=== PATIENT | male | born 1950 | race Caucasian/White ===

== ENCOUNTER 2018-07-14 11:35 | Observation (INO) | payer OTHER ==
[2018-07-14 12:02] LABS: PLATELET COUNT 235 10^3/uL (150-400)
--- NOTE | 2018-07-14 12:16 | CPEKG ---
Test Reason : OPEN Blood Pressure : / mmHG Vent. Rate : 068 BPM Atrial Rate : 069 BPM P-R Int : 174 ms QRS Dur : 105 ms QT Int : 397 ms P-R-T Axes : 073 076 058 degrees QTc Int : 423 ms Sinus rhythm Confirmed by Geronimo Diaz ([id number]) on 07/14/2018 12:15:39 PM Referred By: Confirmed By:Geronimo Diaz
--- NOTE | 2018-07-14 12:20 | EDPHY ---
H & P Stated Complaint: chest pain after a run today. relief with 2 SL NTG, fentanyl 100mcg per ems Time Seen by Provider: 07/14/18 12:15 HPI/ROS: CHIEF COMPLAINT: Chest pain HISTORY OF PRESENT ILLNESS: Patient is a 67-year-old man who comes to the emergency department complaining of chest pain. He has a history of single stent to his LAD 5 years ago. He was told at the time that he has a remaining 40% lesion in a different artery but he does not remember which 1. Today he went for a jog and quit early because it was cold outside. About 45 min later he developed chest pain while eating breakfast. He called EMS and his symptoms resolved with nitroglycerin. No EKG changes. His symptoms returned and he was given more nitroglycerin and this again helped with the pain. He is now asymptomatic. He states that he has had pleurisy multiple times and states that it feels similar. No recent fevers or illness. No nausea vomiting or diarrhea. Severity: Moderate Modifying factors: None REVIEW OF SYSTEMS: Constitutional: denies: chills, fever, recent illness, recent injury EENTM: denies: blurred vision, double vision, nose congestion Respiratory: denies: cough, shortness of breath Cardiac: See HPI Gastrointestinal/Abdominal: denies: abdominal pain, diarrhea, nausea, vomiting, blood streaked stools Genitourinary: denies: dysuria, frequency, hematuria, pain Musculoskeletal: denies: joint pain, muscle pain Skin: denies: lesions, rash, jaundice, bruising Neurological: denies: headache, numbness, paresthesia, tingling, dizziness, weakness Hematologic/Lymphatic: denies: blood clots, easy bleeding, easy bruising Immunologic/allergic: denies: HIV/AIDS, transplant 10 systems reviewed and negative except as noted EXAM: GENERAL: Well-appearing, well-nourished and in no acute distress. HEAD: Atraumatic, normocephalic. EYES: Pupils equal round and reactive to light, extraocular movements intact, sclera anicteric, conjunctiva are normal. ENT: TMs normal, nares patent, oropharynx clear without exudates. Moist mucous membranes. NECK: Normal range of motion, supple without lymphadenopathy or JVD. LUNGS: Breath sounds clear to auscultation bilaterally and equal. No wheezes rales or rhonchi. HEART: Regular rate and rhythm without murmurs, rubs or gallops. ABDOMEN: Soft, nontender, normoactive bowel sounds. No guarding, no rebound. No masses appreciated. BACK: No CVA tenderness, no spinal tenderness, step-offs or deformities EXTREMITIES: Normal range of motion, no pitting or edema. No clubbing or cyanosis. NEUROLOGICAL: Cranial nerves II through XII grossly intact. Normal speech, normal gait. 5/5 strength, normal movement in all extremities, normal sensation , normal reflexes PSYCH: Normal mood, normal affect. SKIN: Warm, dry, normal turgor, no visible rashes or lesions. Source: Patient, Family, EMS Exam Limitations: No limitations - Personal History Current Tetanus Diphtheria and Acellular Pertussis (TDAP): Yes - Medical/Surgical History Hx Asthma: No Hx Chronic Respiratory Disease: No Hx Diabetes: No Hx Cardiac Disease: Yes Hx Renal Disease: No Hx Cirrhosis: No Hx Alcoholism: No Hx HIV/AIDS: No Hx Splenectomy or Spleen Trauma: No Other PMH: CAD, stent in LAD, costocondritis, htn, high cholesterol, hypothyriod , shingles 2016, ADHD - Social History Smoking Status: Never smoked Alcohol Use: Sober Drug Use: None Constitutional: Initial Vital Signs Temperature (C) 36.7 C 07/14/18 11:47 Heart Rate 80 07/14/18 11:47 Respiratory Rate 16 07/14/18 11:47 Blood Pressure 122/77 H 07/14/18 11:47 O2 Sat (%) 92 07/14/18 11:47 O2 Delivery Mode Room Air Allergies/Adverse Reactions: No Known Allergies Allergy (Unverified 07/14/18 11:45) Home Medications: Medication Instructions Recorded Adderall 10 MG (*) 07/14/18 Levothyroxine 07/14/18 Lisinopril 07/14/18 Pravastatin Sodium 07/14/18 Medical Decision Making - Diagnostics EKG Interpretation: An EKG obtained and was read and documented in trace view. Please see trace view for full reading and report. Sinus rhythm, no acute ischemic changes Imaging Results: Imaging Impressions Chest X-Ray 07/14/18 11:54 Impression: Clear lungs. No acute process. Imaging: Discussed imaging studies w/ healthcare interpreter Radiologist ED Course/Re-evaluation: Partial list of the Differential diagnosis considered include but were not limited to; acute coronary disease, pleurisy, PE and although unlikely based on the history and physical exam, I also considered pneumothorax, pneumonia. Differential Diagnosis: Partial list of the Differential diagnosis considered include but were not limited to; acute coronary disease, pleurisy, esophageal spasm, GERD and although unlikely based on the history and physical exam, I also considered PE, pneumonia. Critical Care Time: Critical care time spent by me, Dr. Diaz exclusive with this patient was 35 minutes, exclusive of the PA time exclusive of procedures. The organ system that was at risk was cardiovascular and I gave diagnostics, consultation and admission to prevent worsening of the patient's condition - Data Points Laboratory Results: Laboratory Results 07/14/18 11:30 07/14/18 11:30 07/14/18 07/14/18 07/14/18 11:44 11:30 11:30 WBC 6.53 10^3/uL 10^3/uL (3.80-9.50) RBC 5.05 10^6/uL 10^6/uL (4.40-6.38) Hgb 15.7 g/dL g/dL (13.7-17.5) Hct 46.4 % % (40.0-51.0) MCV 91.9 fL fL (81.5-99.8) MCH 31.1 pg pg (27.9-34.1) MCHC 33.8 g/dL g/dL (32.4-36.7) RDW 13.0 % % (11.5-15.2) Plt Count 235 10^3/uL 10^3/uL (150-400) MPV 9.5 fL fL (8.7-11.7) Neut % (Auto) 52.4 % % (39.3-74.2) Lymph % (Auto) 37.4 % % (15.0-45.0) [place] % (Auto) 7.0 % % (4.5-13.0) Eos % (Auto) 2.1 % % (0.6-7.6) Baso % (Auto) 0.8 % % (0.3-1.7) Nucleat RBC Rel Count 0.0 % % (0.0-0.2) Absolute Neuts (auto) 3.42 10^3/uL 10^3/uL (1.70-6.50) Absolute Lymphs (auto) 2.44 10^3/uL 10^3/uL (1.00-3.00) Absolute Monos (auto) 0.46 10^3/uL 10^3/uL (0.30-0.80) Absolute Eos (auto) 0.14 10^3/uL 10^3/uL (0.03-0.40) Absolute Basos (auto) 0.05 10^3/uL 10^3/uL (0.02-0.10) Absolute Nucleated RBC 0.00 10^3/uL 10^3/uL (0-0.01) Immature Gran % 0.3 % % (0.0-1.1) Immature Gran # 0.02 10^3/uL 10^3/uL (0.00-0.10) Sodium 141 mEq/L mEq/L (135-145) Potassium 4.1 mEq/L mEq/L (3.3-5.0) Chloride 103 mEq/L mEq/L (97-110) Carbon Dioxide 25 mEq/l mEq/l (22-31) Anion Gap 13 mEq/L mEq/L (6-14) BUN 20 mg/dL mg/dL (7-23) Creatinine 1.0 mg/dL mg/dL (0.7-1.3) Estimated GFR > 60 Glucose 85 mg/dL mg/dL (70-100) Calcium 9.7 mg/dL mg/dL (8.5-10.4) POC Troponin I 0.00 ng/mL ng/mL (0.00-0.08) Point of Care Test Results: Chemistry 07/14/18 11:44 POC Troponin I 0.00 ng/mL ng/mL (0.00-0.08) Departure - Departure Disposition: [facility] Inpatient Acute Clinical Impression: Chest pain Qualifiers: Chest pain type: unspecified Qualified Code(s): R07.9 - Chest pain, unspecified Condition: Fair
--- NOTE | 2018-07-14 15:48 | PDGENHP ---
History and Physical - Chief Complaint Chest pain - History of Present Illness 67 y/o male with history of LAD stent placement in 2012 with 40% residual lesion , CAD, hypertension, high cholesterol and costochondritis presents with mid- sternal chest pain. Onset was this morning as he was eating breakfast. Prior, he was outside exercising (running). He reports a sore throat and mid-sternal chest pain that he initially thought was costochondritis but the pain worsened. He did not have a ride to the emergency room and called 911 for ambulance transport. He took 324 mg of ASA at home, was given nitroglycerin while in the ambulance and reports pain subsided. It came back once more, he received nitroglycerin again and 100 mcg of Fentanyl. At the maximum point of pain, he rated it 6-7/10. At present, he is ambulating in his room with family and reports the discomfort is barely there but if he presses on the area, it aggravates it. Denies cough, N/V, fevers/chills, vision changes, no pain radiating to arm or up to jaw and neck. Past Medical/Surgical History 1. LAD Stent Placement 2012 with 40% residual lesion 2. CAD 3. Costochondritis 4. Hypertension 5. High Cholesterol 6. Hypothyroidism 7. Shingles in 2016 8. ADHD History Information - Allergies/Home Medication List Allergies/Adverse Reactions: No Known Allergies Allergy (Unverified 07/14/18 11:45) Home Medications: Amphet Asp and D/Amphet [Adderall 10 MG (*)] 10 mg PO BID@10,14 PRN 07/14/18 [ Last Taken 07/13/18] Carboxymethylcellulose 1% [Refresh Celluvisc (*)] 1 drop EACHEYE BID PRN [Last Taken 07/13/18] Cholecalciferol Vit D3 [Vitamin D3 (*)] 1,000 units PO DAILY 07/14/18 [Last Taken 07/14/18 09:00] Herbals/Supplements -Info Only 1 ea PO DAILY 07/14/18 [Last Taken 07/14/18] Levothyroxine [Synthroid 75 mcg (*)] 75 mcg PO DAILY06 07/14/18 [Last Taken 03/24 06:30] Lisinopril [Zestril 10 mg (*)] 10 mg PO DAILY 07/14/18 [Last Taken 07/14/18 06: 30] Pravastatin Sodium 20 mg PO HS 07/14/18 [Last Taken 07/13/18] I have personally reviewed and updated: family history, medical history, social history, surgical history Past Medical History: See HPI List - Surgical History Additional surgical history: See HPI list - Family History Positive for: mother with history of CAD younger than 65, myocardial infarction Additional family history: Mother in her 50s. Father 75 y/o due to a valve disorder - Social History Smoking Status: Never smoked Alcohol Use: Sober Drug Use: None Additional social history: Lives at home with Review of Systems Review of Systems: ROS: 10pt was reviewed & negative except for what was stated in HPI & below Constitutional: Reports: no symptoms EENMT: Reports: sore throat Cardiac: Reports: chest pain Respiratory: Reports: no symptoms Gastrointestinal: Reports: no symptoms Genitourinary: Reports: no symptoms Muscolosketal: Reports: no symptoms Skin: Reports: no symptoms Neurological: Reports: no symptoms Hematologic/Lymphatic: Reports: no symptoms Immunologic/Allergy: Reports: no symptoms Physical Exam Physical Exam: Lab data and imaging reviewed EKG: SR D-Dimer: Pending First troponin: 0.00 Temp Pulse Resp BP Pulse Ox 36.7 C 77 18 127/79 H 92 07/14/18 14:23 07/14/18 14:23 07/14/18 14:23 07/14/18 14:23 07/14/18 14:23 Constitutional: no apparent distress, appears nourished, not in pain Eyes: PERRL, anicteric sclera, EOMI Ears, Nose, Mouth, Throat: moist mucous membranes, hearing normal, ears appear normal, no oral mucosal ulcers, other (No pharygneal erythema) Cardiovascular: regular rate and rhythym, no murmur, rub, or gallop, other ( Palpating area aggravates pain), No edema Peripheral Pulses: 2+: dorsalis-pedis (R) (Radial 2+), dorsalis-pedis (L) ( Radial 2+) Respiratory: no respiratory distress, no rales or rhonchi, clear to auscultation Gastrointestinal: normoactive bowel sounds, soft, non-tender abdomen, no palpable masses Genitourinary: no bladder fullness, no bladder tenderness Skin: warm, normal color, no rashes or abrasions, no fluctuance, no induration, No mottled Musculoskeletal: full muscle strength, no muscle tenderness, normal joint ROM, no joint effusions Neurologic: AAOx3, sensation intact bilaterally, CN II-XII Intact Psychiatric: interacting appropriately, not anxious, not encephalopathic, thought process linear Lymph, Heme, Immunologic: no cervical LAD, no supraclavicular LAD Lab Data & Imaging Review 07/14/18 11:30 07/14/18 11:30 WBC 6.53 10^3/uL (3.80-9.50) 07/14/18 11:30 RBC 5.05 10^6/uL (4.40-6.38) 07/14/18 11:30 Hgb 15.7 g/dL (13.7-17.5) 07/14/18 11:30 Hct 46.4 % (40.0-51.0) 07/14/18 11:30 MCV 91.9 fL (81.5-99.8) 07/14/18 11:30 MCH 31.1 pg (27.9-34.1) 07/14/18 11:30 MCHC 33.8 g/dL (32.4-36.7) 07/14/18 11:30 RDW 13.0 % (11.5-15.2) 07/14/18 11:30 Plt Count 235 10^3/uL (150-400) 07/14/18 11:30 MPV 9.5 fL (8.7-11.7) 07/14/18 11:30 Neut % (Auto) 52.4 % (39.3-74.2) 07/14/18 11:30 Lymph % (Auto) 37.4 % (15.0-45.0) 07/14/18 11:30 [place] % (Auto) 7.0 % (4.5-13.0) 07/14/18 11:30 Eos % (Auto) 2.1 % (0.6-7.6) 07/14/18 11:30 Baso % (Auto) 0.8 % (0.3-1.7) 07/14/18 11:30 Nucleat RBC Rel Count 0.0 % (0.0-0.2) 07/14/18 11:30 Absolute Neuts (auto) 3.42 10^3/uL (1.70-6.50) 07/14/18 11:30 Absolute Lymphs (auto) 2.44 10^3/uL (1.00-3.00) 07/14/18 11:30 Absolute Monos (auto) 0.46 10^3/uL (0.30-0.80) 07/14/18 11:30 Absolute Eos (auto) 0.14 10^3/uL (0.03-0.40) 07/14/18 11:30 Absolute Basos (auto) 0.05 10^3/uL (0.02-0.10) 07/14/18 11:30 Absolute Nucleated RBC 0.00 10^3/uL (0-0.01) 07/14/18 11:30 Immature Gran % 0.3 % (0.0-1.1) 07/14/18 11:30 Immature Gran # 0.02 10^3/uL (0.00-0.10) 07/14/18 11:30 Sodium 141 mEq/L (135-145) 07/14/18 11:30 Potassium 4.1 mEq/L (3.3-5.0) 07/14/18 11:30 Chloride 103 mEq/L (97-110) 07/14/18 11:30 Carbon Dioxide 25 mEq/l (22-31) 07/14/18 11:30 Anion Gap 13 mEq/L (6-14) 07/14/18 11:30 BUN 20 mg/dL (7-23) 07/14/18 11:30 Creatinine 1.0 mg/dL (0.7-1.3) 07/14/18 11:30 Estimated GFR > 60 07/14/18 11:30 Glucose 85 mg/dL (70-100) 07/14/18 11:30 Calcium 9.7 mg/dL (8.5-10.4) 07/14/18 11:30 POC Troponin I 0.00 ng/mL (0.00-0.08) 07/14/18 11:44 Assessment & Plan Assessment: Chest pain (Acute) Plan: A: 67 y/o male with history of LAD stent placement in 2012 with 40% residual lesion, CAD, hypertension, high cholesterol and costochondritis presents with mid-sternal chest pain that was relieved with 2x nitroglycerin and 100 mcg of Fentanyl. Heart score is 5 (moderately suspicious, >65 y/o, history of atherosclerotic disease), 16.6% risk of a major cardiac event at 6 weeks based on his score. Differential diagnoses are ACS, exacerbated costochondritis, pleurisy. 1. Chest pain -Cardiology consulted and aware. Jones Shah NP reports pt had an abnormal echo 2 years ago. Most likely cath tomorrow. -Echo limited -Cycle trops; if second trop is negative, may transition to regular diet. If cath tomorrow, NPO at midnight tonight. -Cycle EKGs -Tele 2. CAD: monitor. Continue home medications. 3. Hypertension: stable. Continue to monitor. Continue home medications. 4. Hypothyroidism: Continue home medications. Diet: NPO VTE ppx: SCDs Code: Full Dispo: Admit to obs
[2018-07-14] MEDS ORDERED: NITROGLYCERIN 0.4 MG BTL SL PRN (16:07)
[2018-07-14] MEDS ORDERED: TEMAZEPAM 15 MG CAP PO PRN (16:07)
[2018-07-14] MEDS ORDERED: ACETAMINOPHEN 325 MG TAB PO PRN (16:07)
[2018-07-14] MEDS ORDERED: CARBOXYMETHYLCELLULOSE 1% 0.4 ML DROPERETTE EACHEYE PRN (16:10)
--- NOTE | 2018-07-14 17:00 | HOSPPROG ---
Hospitalist Progress Note Assessment/Plan: Patient seen and examined. Agree with plan as outlined by Zaira Zarate NP Patient presented with CP, previous stent with 40% residual stenosis on last cath. Heart score is 5. Patient is high risk. Cardiology consulted and they plan on cath in am. Objective: Vital Signs Temp Pulse Resp BP Pulse Ox 36.7 C 77 18 127/79 H 92 07/14/18 14:23 07/14/18 14:23 07/14/18 14:23 07/14/18 14:23 07/14/18 14:23 EKG viewed by me, my personal interpretation is - NSR CXR - negative Laboratory Tests 07/14/18 07/14/18 15:30 15:30 D-Dimer < 0.27 Troponin I < 0.012 - Physical Exam Constitutional: no apparent distress, appears nourished, not in pain Cardiovascular: regular rate and rhythym, no murmur, rub, or gallop Respiratory: no respiratory distress, no rales or rhonchi, clear to auscultation Gastrointestinal: normoactive bowel sounds, soft, non-tender abdomen, no palpable masses Skin: no rashes or abrasions, no fluctuance, no induration Neurologic: AAOx3, sensation intact bilaterally Psychiatric: interacting appropriately, not anxious, not encephalopathic, thought process linear ICD10 Worksheet Patient Problems: Problems Problem Status Onset Chest pain Acute
--- NOTE | 2018-07-14 17:20 | GCON ---
CARDIOLOGY CONSULTATION. INDICATION FOR CARDIOLOGY CONSULTATION: Known history of CAD, chest pain. REQUESTING PROVIDER: Jody Zarate NP, Hospitalist Service HISTORY OF PRESENT ILLNESS: This is a patient who is known to our practice. He has recently established care with us. He has significant past history that includes CAD with previous SONIA implantation in 2012 in [place], at that time , he was also noted to have a 40% right coronary artery stenosis. He also has history of hypertension, hypercholesteremia, and costochondritis. He reports today that he had been running outside, with no symptoms. He came back in, was sitting at his computer, and felt midsternal chest pressure. He felt initially that potentially this was costochondritis, but it became worse, reporting up to an 8/. He reports potentially mild SOB, but no nausea or diaphoresis. This had concerned him enough, that he called 911, and was transported to [facility]. He reports at home, he was directed by the blankbook stitching machine operator, to take 324 mg of aspirin. Upon EMS arrival, he was also given 2 sublingual nitroglycerin, which did significantly help reduce the pain, but not totally relieved, and then was given 100 mcg of fentanyl, which reported he was pain free upon his arrival to the emergency department. He denies any shortness of breath, orthopnea, PND, edema, palpitations, lightheadedness, near-syncope, or syncopal events. Reports no symptoms suggestive of TIA or CVA. Reports prior to this event he had been in his normal state of health. He is known to have an abnormal exercise echocardiogram that was done in February of 2016, which was done at [facility] , which exercise treadmill testing did note 1-[address] depression in his inferior lateral leads, but stress echo noted no wall motion abnormalities. He informs me Dr. Back, his previous scow hand, had discussed with him about potentially repeating cardiac catheterization at that time , versus medical treatment in which he chose. PAST MEDICAL HISTORY: 1. CAD with previous stent implantation of the LAD and known 40% stenosis in his RCA. 2. Costochondritis. 3. Hypertension. 4. Hypercholesterolemia. 5. Hypothyroidism. 6. Shingles in 2016. 7. Attention deficit hyperactivity disorder. PAST SURGICAL HISTORY: Includes coronary catheterization as mentioned above. FAMILY HISTORY: Patient reports positive family history of coronary artery disease. Reporting mother with history of CAD and younger brother at age 65 with myocardial infarction. Patient also states father had valvular heart disease. Dying at age 75. SOCIAL HISTORY: He is retired, reports he is a previous smoker in college, but has not used tobacco in multiple years. Alcohol a former drinker, but reports no alcohol usage currently. He is . He lives here with his adult daughter and her family. Denies any illicit drug use. ALLERGIES: He has no known drug allergies. HOME MEDICATIONS: Include Refresh 1 drop to each eye twice daily p.r.n., herbs and supplements p.o. daily, vitamin D3 1000 units p.o. daily. Adderall 10 mg p.o. twice daily p.r.n. Synthroid 75 mcg p.o. daily. Pravastatin 20 mg p.o. h.s., lisinopril 10 mg p.o. daily. REVIEW OF SYSTEMS: A 10-point review of systems done on this patient, all negative except as mentioned above. PHYSICAL EXAMINATION: GENERAL APPEARANCE: Thin, well-groomed male. He is alert and oriented to person, place, time, and situation. Appears to be under no acute distress at this time. VITAL SIGNS: Current vital signs are a blood pressure of 127/79, heart rate 77, sinus rhythm on the monitor. Respirations 18, saturating 92% on room air. Temperature 36.7 degrees Celsius. HEENT: Head is normocephalic. Lips and tongue are pink and moist with no signs of cyanosis. Conjunctivae pink. NECK: Trachea is midline, +2 carotid pulses bilateral. No auscultated bruits, no jugular vein distention. RESPIRATORY: Lungs are clear to auscultation, no rhonchi, rales or wheezes. No accessory muscle use. No intercostal muscle retraction noted. CARDIAC: Regular rate, regular rhythm, S1, S2, no S3, S4, gallops rubs or murmurs noted. ABDOMEN: Soft, nontender, bowel sounds x4 quadrants, no organomegaly, no palpable masses. SKIN: [place], warm, dry, no cyanosis, no clubbing, no peripheral edema. VASCULAR: +2 carotids bilateral, +2 radials bilateral, +1 dorsal pedal and posterior tibial pulses bilateral. LABORATORY STUDIES: Laboratory studies drawn today show WBC of 6.53, hemoglobin 15.7, hematocrit of 46.4, platelet count of 235. D-dimer less than 0.27. Sodium 141, potassium 4.1, chloride 103, CO2 25, BUN 20, creatinine 1.0, glucose 85, calcium 9.7, troponin was noted initial of 0.00, repeated later this afternoon was less than 0.012. D-dimer was less than 0.27. STUDIES: Electrocardiogram upon arrival to the emergency department which showed sinus rhythm, normal axis, no significant ST or T-wave abnormalities. Chest x-ray showing clear lungs. No acute process. Preliminary echocardiogram done showing normal LV systolic function with no wall motion abnormalities. ASSESSMENT AND PLAN: 1. Chest pressure: Patient reporting episode of chest pressure this afternoon after getting home from exertional run. Reporting pain was intense up to an 8/ 10. Reporting this was similar pain to that he had prior to his previous stent. Symptoms were relieved with sublingual nitroglycerin and fentanyl. The patient is noted to have an abnormal exercise treadmill test in 2016 in which he had been medically treated for. He is also known to have CAD with previous stenting of the LAD and known 40% stenosis in his RCA that was done in [place] in 2012. Echocardiogram today showing no wall motion abnormalities, negative troponins x2. At this time, after discussing with Dr. Peres, it is felt best that the patient be further evaluated for cardiac ischemia. Due to history of abnormal stress testing, we have chosen to proceed on with coronary catheterization for further evaluation. The risks and benefits of this procedure were explained to the patient and his , they verbalize understanding. Patient will be made n.p.o. after midnight. He has already taken aspirin therapy. Currently he is pain-free, we will hold off on starting beta brianna at this time since negative troponins. Will not start him on anticoagulation therapy due to negative troponin. If his symptoms do worsen, or if he has any significant EKG changes, his catheterization can always be moved up to a more urgent status. 3. Hypertension: Patient with noted history of hypertension, blood pressure appears to be well managed, he has been resumed on home dosage of lisinopril. 4. Hyperlipidemia: Patient is currently on statin therapy, his medication has been reordered in the hospital. We will order a fasting lipid panel to be done tomorrow to evaluate therapy. 5. Hypothyroidism: The patient has been resumed on home dose of Synthroid. 6. Attention deficit hyperactivity disorder: The patient is on Adderall. With him having chest pain, we will hold his Adderall at this time, until cardiac catheterization has been done for further evaluation. Plan has been discussed with the patient, his , and hospitalist services. Thank you for this consultation. Further recommendations will come post cardiac catheterization scheduled for tomorrow morning with Dr. Peres. /[id number] [id number]
--- NOTE | 2018-07-14 17:43 | ECHO ---
[email or web address] [address] Main: [phone] Fax: Transthoracic Echocardiogram Name: ELYSIA MORGAN MR#: [id number] Study Date: 07/14/2018 Study Time: 02:59 PM Date of : 1950 Age: 67 year(s) Height: 182.9 cm (72 in.) Weight: 81.19 kg (179 lb.) BSA: 2.03 m2 Gender: Male Examination: Echo Indication: Chest pain/hx stent (LAD) Image Quality: Good Contrast: Requested by: Jones Shah BP: 110 mmHg/75 mmHg Heart Rate: Rhythm: Indication: Chest pain/hx stent (LAD) Procedure Staff Highway Maintainer: Jessie Pinto RDCS Reading Physician: Edi Yu MD Requesting Provider: Conclusions: Normal size left ventricle. No LV hypertrophy. Normal global systolic LV function. EF is 64 %. No regional wall motion abnormality. Normal diastolic LV function. The aortic valve is tri-leaflet. There is no aortic valve regurgitation. Mild calcification of the NCC of the aortic valve.. Trivial tricuspid valve regurgitation. Mildly dilated ascending aorta measuring 4.0 cm. No pericardial effusion. Measurements: Chambers Valvular Assessment AV/MV Valvular Assessment TV/PV Normal Normal Normal Name Value Range Name Value Range Name Value Range Ao Chanelle (MM): 3.9 cm (2.2 cm-3.7 AV Vmax: 1.24 m/s (1 m/s-1.7 cm) m/s) IVSd (2D): 0.6 cm (0.6 cm-1.1 AV meanP mmHg ( - ) cm) MV E Vmax: 0.62 m/s ( - ) LVDd (2D): 5.7 cm (4.2 cm-5.9 MV A Vmax: 0.51 m/s ( - ) cm) MV E/A: 1.22 ( - ) LVDs (2D): 3.7 cm (2.1 cm-4 cm) LVPWd (2D): 0.7 cm (0.6 cm-1 cm) LVEF (MOD4): 64 % (>=55 %) Continued Measurements: Patient: ELYSIA MORGAN Study Date: 07/14/2018 Page 1 of 2 02:59 PM Chambers Valvular Assessment AV/MV Name Value Name Value LADs: 3.3 cm MV E' Septal: 0.11 m/s LADs Lon.3 cm MV E/E' Septal: 5.70 LA Area: 12.3 cm2 MV E/E' Lateral: 6.20 LA Volume: 26 ml LA Volume Index: 12.8 ml/m2 Additional Vessels Name Value Ao Ascendin.0 cm Findings: Left Ventricle: Normal size left ventricle. No LV hypertrophy. Normal global systolic LV function. EF is 64 %. No regional wall motion abnormality. Normal diastolic LV function. Right Ventricle: Normal size right ventricle. Normal RV function. Left Atrium: The left atrium is normal in size. Right Atrium: The right atrium is normal in size. Mitral Valve: The mitral valve is normal in appearance and function. Trivial mitral valve regurgitation. Aortic Valve: The aortic valve is tri-leaflet. There is no aortic valve regurgitation. Mild calcification of the NCC of the aortic valve.. Tricuspid Valve: The tricuspid valve is normal in appearance and function. Trivial tricuspid valve regurgitation. Pulmonic Valve: Pulmonary valve not well visualized. Aorta: The aorta is normal. Mildly dilated aortic root measuring 3.9 cm. Mildly dilated ascending aorta measuring 4.0 cm. Pericardium: No pericardial effusion. (No Signature Object) Patient: ELYSIA MORGAN Study Date: 07/14/2018 Page 2 of 2 02:59 PM [id number]
[2018-07-14] MEDS ORDERED: PRAVASTATIN SODIUM 20 MG TAB PO SCH (21:00)
--- NOTE | 2018-07-14 22:48 | CPEKG ---
Test Reason : OPEN Blood Pressure : / mmHG Vent. Rate : 064 BPM Atrial Rate : 066 BPM P-R Int : 181 ms QRS Dur : 105 ms QT Int : 417 ms P-R-T Axes : 083 086 069 degrees QTc Int : 431 ms Sinus rhythm Early repolarization Confirmed by Andreas Nunez ([id number]) on 07/14/2018 10:47:43 PM Referred By: Confirmed By:Andreas Nunez
[2018-07-15 04:21] LABS: PLATELET COUNT 219 10^3/uL (150-400)
[2018-07-15 04:29] LABS: INR 0.97 (0.83-1.16); PROTIME(PATIENT) 13.1 SEC (12.0-15.0)
[2018-07-15] MEDS ORDERED: NS 1,000 ML IV ONE (06:00)
[2018-07-15] MEDS ORDERED: LEVOTHYROXINE 75 MCG TAB PO SCH (06:00)
[2018-07-15] MEDS ORDERED: diphenhydrAMINE 25 MG CAP PO ONE ×2 (06:00→11:10)
[2018-07-15] MEDS ORDERED: DIAZEPAM 5 MG TAB PO ONE (06:00)
[2018-07-15] MEDS ORDERED: FAMOTIDINE 20 MG TAB PO ONE (06:00)
[2018-07-15] MEDS ORDERED: ASPIRIN EC 325 MG TAB PO ONE ×2 (06:00→11:10)
[2018-07-15] MEDS ORDERED: LISINOPRIL 10 MG TAB PO SCH (09:00)
[2018-07-15] MEDS ORDERED: CHOLECALCIFEROL VIT D3 1,000 UNITS TAB PO SCH (09:00)
[2018-07-15] MEDS ORDERED: ADDERALL 10 MG TAB PO PRN (10:00)
[2018-07-15] MEDS ORDERED: DIAZEPAM 5 MG TAB ONE (11:10)
[2018-07-15] MEDS ORDERED: FAMOTIDINE 20 MG TAB ONE (11:10)
--- NOTE | 2018-07-15 11:53 | PDPROPOC ---
Sedation Plan of Care Sedation Plan of Care: vital signs stable, mental status noted, patient educated of risks, benefits, alternatives, patient can tolerate sedation ASA Classification: ASA 2 Planned drugs: fentanyl, midazolam Mallampati Score: Class 2 Mallampati Reference Image: Patient passed 3-3-2 rule?: Yes
[2018-07-15] MEDS ORDERED: IOPAMIDOL (ISOVUE-370) 150 ML BTL IV ONE (11:55)
[2018-07-15] MEDS ORDERED: LIDOCAINE 1% 300 MG/30 ML SDV ONE (11:55)
[2018-07-15] MEDS ORDERED: fentaNYL 100 MCG/2 ML INJ ONE (11:55)
[2018-07-15] MEDS ORDERED: MIDAZOLAM 2 MG/2 ML VIAL ONE ×2 (11:55)
[2018-07-15] MEDS ORDERED: ATROPINE SULFATE 1 MG/10 ML SYR ONE (12:54)
[2018-07-15] MEDS ORDERED: ATROPINE SULFATE 1 MG/10 ML SYR IVP PRN (12:59)
[2018-07-15] MEDS ORDERED: ONDANSETRON 4 MG/2 ML VIAL IVP PRN (12:59)
--- NOTE | 2018-07-15 13:37 | CPIP ---
DATE OF PROCEDURE: 07/15/2018 PROCEDURES: 1. Coronary angiography. 2. Left ventriculography. INDICATION: 1. Known coronary artery disease status post stenting of his left anterior descending coronary arter y. 2. Chest pain syndrome concerning for an acute coronary syndrome. ACCESS: Patient was prepped and draped in sterile fashion. 1% lidocaine was used to anesthetize the right inguinal region. A 6-Monegasque introducer sheath was placed selectively into the right common fe moral artery via modified Seldinger technique. CORONARY ANGIOGRAPHY: A 6-Monegasque JL4 was advanced to the left main coronary artery and images obtain ed. The left main coronary artery bifurcated into an LAD and circumflex coronary arteries. The left main coronary artery appeared free of any significant disease. In the mid vessel there was a flexur e related to change in vessel direction. The left anterior descending coronary artery was previously stented in the proximal segment. The previously placed stent appears to extend into the distal left main coronary artery. The previously placed stent is patent with mild in-stent restenosis. The lef t anterior descending coronary artery gave rise to 1 dominant diagonal branch as well as several smal ler diagonal branches. The diagonal branches appeared free of any significant disease. The circumfl ex coronary artery was a large vessel but was nondominant. The circumflex coronary artery had mild l uminal irregularities throughout. There was no stenosis greater than 20%. A 6-Monegasque JR4 was advanc ed to the right coronary artery and images obtained. The right coronary artery was dominant. The ri ght coronary artery had mild diffuse disease throughout. In the distal vessel, there was a segmental 30% to 40% stenosis present. LEFT VENTRICULOGRAPHY: A 6-Monegasque pigtail catheter was advanced in the left ventricle and images obt ained. The left ventricle was normal in size and had normal systolic function. Estimated ejection f raction was 60%. COMPLICATIONS: None. CONCLUSIONS: 1. Patent left anterior descending stent with mild in-stent restenosis. 2. Xsyn-co-jbvyyebm coronary artery disease without flow limitation. 3. Normal left ventricular size and systolic function. 4. Plan is for medical management. /[id number]/MODL
--- NOTE | 2018-07-15 15:57 | ASMTCMCOM ---
CM Note CM Note Notes: Pt is a 67 y/o man admitted for chest pain. Pt will most likely d/c independent when medically stable. No therapies ordered at this time. CM available for changes. Plan: Independent Date Signed: 07/15/2018 03:56 PM Electronically Signed By:VANDANA Steele
[2018-07-15 17:07] VITALS: BP 105/75
--- NOTE | 2018-07-15 19:24 | GDS ---
DISCHARGE DIAGNOSES: 1. Chest pain with possible unstable angina. 2. Left anterior descending stent with some intrusion into the left main. 3. 40% right coronary artery lesion which is stable. HISTORY: The patient is a 67-year-old male who had a stent placed in [place] to his LAD in 2012 with a known 40% residual lesion in his right coronary artery. He presented to the hospital with new onset of midsternal chest pain. He was admitted under observation. Given his previous coronary artery disease history, cardiology was consulted. Given his history of high residual lesion on his last cardiac catheterization, decision was made to proceed with cardiac cath. This was performed today by Dr. Peres. Please refer to cardiac catheterization report. However in summary his previously placed LAD stent appeared to extend into the distal left main coronary artery. There was mild in-stent restenosis. The residual 40% stenosis in the right coronary artery appeared to be stable. Cardiology was concerned regarding the stent going into the left main and did recommend increased anti-platelet therapy. On presentation he was on 81 mg of aspirin p.o. daily. They would like to add Plavix 75 mg p.o. daily to his regimen. To improve his medical management we also changed his statin drug, he is on pravastatin but his LDL is 89. At discharge he will change to Lipitor 40 mg p.o. daily. DISCHARGE MEDICATIONS: Please see computer record for full detailed list. New medications: 1. Plavix 75 mg p.o. daily to be taken in addition to his 81 mg p.o. daily. Aspirin. 2. Lipitor to be taken 40 mg p.o. daily at bedtime instead of pravastatin 20 mg p.o. at bedtime. ADDITIONAL DISCHARGE INSTRUCTIONS: 1. Follow up with Dr. Edwards, his limb driver. Appointment is arranged. 2. Standard groin precautions post cardiac catheterization. Patient seen and examined by me on the day of discharge. /[id number]/MODL MTDD
[2018-07-15] MEDS ORDERED: ATORVASTATIN CALCIUM 40 MG TAB PO SCH (21:00)
[2018-07-16] MEDS ORDERED: CLOPIDOGREL BISULFATE 75 MG TAB PO SCH ×2 (09:00)
[2018-07-16] MEDS ORDERED: ATORVASTATIN CALCIUM 40 MG TAB PO SCH (09:00)
== END 2018-07-15 17:30 | disposition home or self-care (01) ==
LOC: F2W 13:15
PROVIDERS: ADMIT Internal Medicine; ATTEND Internal Medicine
DX: R07.9 Chest pain, unspecified (principal); I25.10 Atherosclerotic heart disease of native coronary artery without angina pectoris; Z98.61 Coronary angioplasty status
CPT/HCPCS: 71046; 93005; 93306; 93458; 99291; G0378; J1644; J2250; J3010; Q9967; 84484-PO; J0461